=== PATIENT | male | born 1980 | race Caucasian/White ===

== ENCOUNTER 2016-09-24 10:05 | Emergency (ER) | payer OTHER ==
[~2016-09-24] VITALS: Ht 180.3 cm; Wt 98.1 kg
[~2016-09-24 10:05] MED LIST: NORCO 5/3251 TABLET PO; ZOFRAN ODT4 MG PO; ZOFRAN4 MG PO
[2016-09-24 11:19] LABS: HEMATOCRIT 51.4 % (38.0-50.0); MCH 31.3 PG (29.0-34.0); MCHC 34.6 G/DL (30.0-36.0); MCV 90.3 FL (86-99); MEAN PLAT.VOLUME 10.8 uM^3 (9.0-12.4); PLATELET COUNT 213 K/uL (156-360); RBC DIS.WIDTH-CV 12.7 % (11.8-14.6); RBC DIS.WIDTH-SD 41.8 % (39-53); RED BLOOD COUNT 5.69 M/uL (4.00-5.50); WHITE BLOOD COUNT 7.3 K/uL (4.1-10.2)
[2016-09-24 11:38] LABS: CHLORIDE 100 mEq/L (99-109); POTASSIUM 3.9 mEq/L (3.7-5.4); SODIUM 138 mEq/L (136-147)
[2016-09-24 11:40] LABS: GLUCOSE 129 mg/dL (70-99)
[2016-09-24 11:41] LABS: ANION GAP 16 MEQ/L (2-14)
[2016-09-24 11:42] LABS: TOTAL BILIRUBIN 1.4 mg/dL (0.0-1.0)
[2016-09-24 11:43] LABS: ALKALINE PHOSPHATASE 70 IU/L (3-129)
[2016-09-24 11:44] LABS: GFR ESTIMATE (CALCULATED) > 59 mL/min/
[2016-09-24 11:45] LABS: UREA NITROGEN (BUN) 15 mg/dL (9-23)
[2016-09-24 11:47] LABS: LIPASE 61 U/L (1.0-51.0)
[2016-09-24 14:34] LABS: SERUM ETHYL ALCOHOL 153 mg/dL
[2016-09-24 15:13] LABS: ADD MIUA? YES; BILIRUBIN NEGATIVE; BLOOD NEGATIVE; COLOR YELLOW ((YELLOW)); GLUCOSE (STRIP) NEGATIVE; KETONES NEGATIVE; LEUKOCYTES NEGATIVE; NITRITE NEGATIVE; PROTEIN (STRIP) NEGATIVE; SPECIFIC GRAVITY 1.019 (1.000-1.030)
[2016-09-24 15:34] LABS: BACTERIA 1+ /HPF; CASTS PRESENT /LPF; CRYSTALS NONE SEEN; EPITHELIAL CELLS RARE /HPF; MUCUS 3+ /LPF; RED BLOOD CELLS 0-5 /HPF (0-5); UCUL ADDED? NO; WHITE BLOOD CELLS 0-5 /HPF (0-5)
[2016-09-24 15:35] LABS: HYALINE CASTS 0-5 /LPF
[2016-09-24] MEDS ORDERED: ZOFRAN ODT4 MG PO (15:52)
[2016-09-24] MEDS ORDERED: LIBRIUM25 MG PO (15:52)
[2016-09-24 17:49] VITALS: BP 142/79
== END 2016-09-24 17:49 | disposition home or self-care (01) ==
LOC: EME 10:05
DX: F10.20 Alcohol dependence, uncomplicated (principal); F32.9 Major depressive disorder, single episode, unspecified; Y90.6 Blood alcohol level of 120-199 mg/100 ml; F17.200 Nicotine dependence, unspecified, uncomplicated
CPT/HCPCS: 80053; 81003; 83690; 85027; 90839; 99281; 99285; G0480; J2405; J3411; J7030